=== PATIENT | female | born 1995 | race Caucasian/White ===

== ENCOUNTER 2018-01-04 19:55 | Emergency (ER) | payer OTHER ==
[2018-01-04 20:00] VITALS: BMI 25.1
[2018-01-04] MEDS ORDERED: Sodium Chloride 0.9% 1,000 ML IV STA (20:53)
[2018-01-04 21:18] LABS: BASO # 0.04 K/mm3 (0.0-2.0); BASO % 0.6 % (0.0-3.0); EOS # 0.7 (0.0-0.7); EOS % 10.6 % (1.5-5.0); GRAN # 2.9 (1.4-6.5); GRAN % 45.2 % (50.0-68.0); LYMPH # 2.4 (1.2-3.4); LYMPH % 36.9 % (22.0-35.0); MEAN CELL VOLUME 84.5 fl (80.0-105.0); MEAN CORPUSCULAR HEMOGLOBIN 27.9 pg (25.0-35.0); MEAN PLATELET VOLUME 12.6 fl (7.0-11.0); MONO # 0.4 (0.1-0.6); MONO % 6.7 % (1.0-6.0); RBC 4.66 10^6/uL (3.5-6.1); RED CELL DISTRIBUTION WIDTH 12.7 % (11.5-14.5); WHITE BLOOD COUNT 6.4 10^3/uL (4.5-11.0)
[2018-01-04 21:27] LABS: ALB/GLOB RATIO 1.2 (1.1-1.8); ALBUMIN 4.7 g/dL (3.0-4.8); ALT/SGPT 25 U/L (7-56); AST/SGOT 26 U/L (14-36); BLOOD UREA NITROGEN 11 mg/dL (7-21); CALCIUM 9.7 mg/dL (8.4-10.5); GFR NON-AFRICAN AMERICAN > 60
[2018-01-04 22:33] VITALS: TEMP 98.2
[2018-01-04 22:34] VITALS: RESP 17
[2018-01-04 23:09] VITALS: BP 122/74; PULSE 65; O2SAT 100
--- NOTE | 2018-01-05 02:13 | ED PDOC ---
Arrival/HPI - General Chief Complaint: Dizziness/Lightheaded Time Seen by Provider: 01/04/18 20:22 Historian: Patient - History of Present Illness Narrative History of Present Illness (Text): 01/04/18 20:22 22 year old female, with no significant past medical history, presents to the emergency department with parents via EMS complaining of palpitations for 30 minutes. Patient states she was in [employer] when she felt her heart beating fast. The pharmacist checked her pulse and states it was 160 and told her to come to the Emergency department. Per ems, patient's heart rate was normal on arrival, but increased to approximately 180 in ambulance. During the initial episode, pt describes feeling lightheaded and short of breath with blurry vision and anxiety. Patient denies any history of anxiety, but appears anxious. Denies recent immobilization, travel, surgery, estrogen use, or h/o DVT/PE. Patient denies any substance use, fever, chills, nausea, vomiting, diarrhea, urinary symptoms, back pain, neck pain, headache, weakness, calf swelling, calf tenderness, cough, hemoptysis, chest pain or any other complaints. PMD: None Time/Duration: 1/2 hour Symptom Onset: Sudden Activities at Onset: Light Context: Other ([place]) Past Medical History - Provider Review Nursing Documentation Reviewed: Yes - Cardiac Hx Cardiac Disorders: No - Pulmonary Hx Respiratory Disorders: No - Neurological Hx Neurological Disorder: No - HEENT Hx HEENT Disorder: No - Renal Hx Renal Disorder: No - Endocrine/Metabolic Hx Endocrine Disorders: No - Hematological/Oncological Hx Blood Disorders: No - Integumentary Hx Dermatological Disorder: No - Musculoskeletal/Rheumatological Hx Musculoskeletal Disorders: No - Gastrointestinal Hx Gastrointestinal Disorders: No - Genitourinary/Gynecological Hx Genitourinary Disorders: Yes Other/Comment: MISCARRIAGE - Psychiatric Hx Psychophysiologic Disorder: No Hx Substance Use: No Family/Social History - Physician Review Nursing Documentation Reviewed: Yes Family/Social History: No Known Family HX. denies: Other (sudden cardiac ) Smoking Status: Never Smoked Hx Alcohol Use: No Hx Substance Use: No Allergies/Home Meds Allergies/Adverse Reactions: Allergies No Known Allergies Allergy (Verified 01/04/18 20:09) Home Medications: Home Meds Medication Instructions Recorded Confirmed No Known Home Med 01/04/18 01/04/18 Review of Systems - Physician Review All systems were reviewed & negative as marked: Yes - Review of Systems Constitutional: absent: Fevers, Other (Chills) Eyes: Vision Changes (blurry vision initially). absent: Eye Pain ENT: absent: Hearing Changes, Sore Throat, Rhinorrhea, Epistaxis, Sinus Congestion Respiratory: SOB. absent: Cough Cardiovascular: Palpitations, Other (lightheadedness). absent: Chest Pain, Edema, Calf Pain, Syncope Gastrointestinal: absent: Abdominal Pain, Diarrhea, Nausea, Vomiting Genitourinary Female: absent: Dysuria, Frequency, Hematuria Musculoskeletal: absent: Back Pain, Neck Pain Skin: absent: Rash Neurological: absent: Headache, Dizziness, Focal Weakness, Gait Changes, Speech Changes, Facial Droop, Disequilibrium, Seizure Psychiatric: Anxiety Physical Exam Vital Signs Reviewed: Yes Vital Signs Temp Pulse Resp BP Pulse Ox 01/04/18 23:09 100 01/04/18 23:03 65 17 122/74 100 01/04/18 22:34 68 17 123/80 99 01/04/18 21:30 98.2 F 64 187 H 126/84 100 Temperature: Afebrile Blood Pressure: Normal Pulse: Regular Respiratory Rate: Normal Appearance: Positive for: Well-Appearing, Non-Toxic, Comfortable, Other (Appears anxious) Pain Distress: None Mental Status: Positive for: Alert and Oriented X 3 - Systems Exam Head: Present: Atraumatic, Normocephalic Pupils: Present: PERRL Extroacular Muscles: Present: EOMI Conjunctiva: Present: Normal Ears: Present: Normal Mouth: Present: Moist Mucous Membranes Pharnyx: Present: Normal. No: ERYTHEMA, EXUDATE Nose (External): Present: Atraumatic Nose (Internal): Present: Normal Inspection Neck: Present: Normal Range of Motion Respiratory/Chest: Present: Clear to Auscultation, Good Air Exchange. No: Respiratory Distress, Accessory Muscle Use Cardiovascular: Present: Regular Rate and Rhythm, Normal S1, S2. No: Murmurs Abdomen: Present: Normal Bowel Sounds. No: Tenderness, Distention, Peritoneal Signs Back: Present: Normal Inspection Upper Extremity: Present: Normal Inspection, Normal ROM, NORMAL PULSES, Neurovascularly Intact. No: Cyanosis, Edema Lower Extremity: Present: Normal Inspection, NORMAL PULSES, Normal ROM, Tenderness, Erythema, Deformity, Temperature Abnormalties, Neurovascularly In tact. No: Edema, CALF TENDERNESS, Suki's Sign, Swelling Neurological: Present: GCS=15, CN II-XII Intact, Speech Normal, Motor Func Grossly Intact, Normal Sensory Function, Normal Cerebellar Funct, Gait Normal (steady) Skin: Present: Warm, Dry, Normal Color. No: Rashes Psychiatric: Present: Alert, Oriented x 3, Normal Insight, Normal Concentration, Anxious (Appears) Medical Decision Making ED Course and Treatment: 01/04/18 20:18 Impression: 22 year old female presents complaining of palpitations for 30 minutes associated with shortness of breath, blurry vision, and lightheadedness during the initial incident. On PE, patient appears to be anxious. Plan: -- EKG -- Labs (CBC, CMP, D-dimer) -- Chest X-ray -- IV Fluids -- Orthostatic Vital signs -- Reassess and disposition Progress Notes: 01/04/18 20:22 EKG shows NSR at 89 BPM with normal intervals, no ST elevations or signs of ischemia. Interpreted by me. Workup is negative 01/04/18 21:22 CXR Impression: As read by me and Dr. Perez, no acute disease. In light of normal workup and physical exam, will discharge pt home with cardiology followup. 01/04/18 23:09 On re-evaluation, patient feels better and is in no acute distress. Vital signs are stable, not tachycardic in the ED. I have discussed the results and plan with the patient, who expresses understanding. Patient in agreement with plan to be discharged home. Patient is stable for discharge. Patient was instructed to follow up with physician and cardiology or return if symptoms worsen or new concerning symptoms arise. 01/05/18 14:17 - Lab Interpretations Lab Results: 01/04/18 21:00 01/04/18 21:00 Lab Results 01/04/18 21:00: D-Dimer, Quantitative 203 01/04/18 21:00: Sodium 142, Potassium 3.7, Chloride 104, Carbon Dioxide 25, Anion Gap 16, BUN 11, Creatinine 0.6 L, Est GFR ( Amer) > 60, Est GFR (Non-Af Amer) > 60, Random Glucose 134 H, Calcium 9.7, Total Bilirubin 0.4, AST 26, ALT 25, Alkaline Phosphatase 111, Total Protein 8.7 H, Albumin 4.7, Globulin 4.0, Albumin/Globulin Ratio 1.2 01/04/18 21:00: WBC 6.4, RBC 4.66, Hgb 13.0, Hct 39.4, MCV 84.5, MCH 27.9, MCHC 33.0, RDW 12.7, Plt Count 260, MPV 12.6 H, Gran % 45.2 L, Lymph % (Auto) 36.9 H, [place] % (Auto) 6.7 H, Eos % (Auto) 10.6 H, Baso % (Auto) 0.6, Gran # 2.90, Lymph # (Auto) 2.4, [place] # (Auto) 0.4, Eos # (Auto) 0.7, Baso # (Auto) 0.04 I have reviewed the lab results: Yes - RAD Interpretation Radiology Orders: 01/04/18 20:22 CHEST TWO VIEWS (PA/LAT) [RAD] Stat - EKG Interpretation Interpreted by ED Physician: Yes Type: 12 lead EKG - Medication Orders Current Medication Orders: Discontinued Medications Sodium Chloride (Sodium Chloride 0.9%) 1,000 mls @ 999 mls/hr IV .Q1H1M STA Stop: 01/04/18 21:53 Last Admin: 01/04/18 21:15 Dose: 999 mls/hr eMAR Start Stop Document 01/04/18 21:15 ROGER (Rec: 01/04/18 21:18 ROGER [id number]) Intravenous Solution Start Date 01/04/18 Start Time 21:18 Wells Criteria for PE - Wells Criteria for Pulmonary Embolism Clinical Signs and Symptoms of DVT: No P.E is #1 Diagnosis, or Equally Likely: No Heart Rate >100: Yes (prior to arrival) Immobilization at least 3 days;Surgery previous 4 weeks: No Previous, objectively diagnosed PE or DVT: No Hemoptysis: No Malignancy w/treatment within 6 months, or palliative: No Total Score: 1.5 - Scribe Statement The provider has reviewed the documentation as recorded by the Avni Hamilton Provider Scribe Attestation: All medical record entries made by the Scribjayro were at my direction and person ally dictated by me. I have reviewed the chart and agree that the record accurately reflects my personal performance of the history, physical exam, medical decision making, and the department course for this patient. I have also personally directed, reviewed, and agree with the discharge instructions and disposition. Disposition/Present on Arrival - Present on Arrival Any Indicators Present on Arrival: No History of DVT/PE: No History of Uncontrolled Diabetes: No Urinary Catheter: No History of Decub. Ulcer: No History Surgical Site Infection Following: None - Disposition Have Diagnosis and Disposition been Completed?: Yes Diagnosis: Anxiety, Vasovagal near syncope Disposition: HOME/ ROUTINE Disposition Time: 22:45 Patient Plan: Discharge Condition: IMPROVED Discharge Instructions (ExitCare): Vasovagal Response (DC) Additional Instructions: Increase fluids Followup with cardiology within 2 days Followup with clinic within 2 days Return to ED with new or worsening symptoms Referrals: Jose Raul Pringle MD [Staff Provider] - Follow up with primary PCP,NO [Primary Care Provider] - Follow up with primary Romy Ceballos MD [Medical Doctor] - Follow up with primary Forms: [facility] (Nepali)
--- NOTE | 2018-01-05 09:54 | CARD ---
APPROVED REPORT Date of service: 01/04/2018 EKG Measurement Heart [id number] <Conclusion> Normal sinus rhythm NSSTW changes
--- NOTE | 2018-01-05 10:14 | RAD ---
HISTORY: Palpitations COMPARISON: No prior. TECHNIQUE: Chest PA and lateral FINDINGS: LINES AND TUBES: None. LUNG AND PLEURA: The lungs are well inflated and clear. No pleural effusion or pneumothorax. HEART AND MEDIASTINUM: The heart is not enlarged. No aortic atherosclerotic calcification present. The hilar and mediastinal contours are within normal limits. SKELETAL STRUCTURES: The bony structures are within normal limits for the patient's age. VISUALIZED UPPER ABDOMEN: Normal. OTHER FINDINGS: None. IMPRESSION: No active pulmonary disease.
== END 2018-01-04 23:03 | disposition home or self-care (01) ==
LOC: ED 19:55
DX: F41.9 Anxiety disorder, unspecified (principal); R55 Syncope and collapse
CPT/HCPCS: 71046; 80053; 85025; 85378; 93005; 99285; J7030